=== PATIENT | male | born 1945 | race Caucasian/White ===

== ENCOUNTER 2017-01-21 07:45 | Day surgery (SDC) | payer OTHER ==
[~2017-01-21] VITALS: Ht 180.3 cm; Wt 143.0 kg
[~2017-01-21 07:45] MED LIST: AMARYL1 MG PO; ASPIR 8181 M1 PO; CYMBALTA60 MG PO; DIOVAN320 MG PO; FISH OIL 1,0001 EAC7 PO; FLUTICASONE P15.8 ML BOTH NARES; GLIMEPIRIDE2 MG PO; HYDROCHLOROTHIA25 MG PO; HYDROCODON-ACE1 EAC7 PO; HYDROXYZINE HCL25 MG PO; IRON325 M1 PO; LIPITOR20 MG PO; LORTAB 5-325 M1 EACH PO; METFORMIN HCL500 MG PO; METOPROLOL TART25 MG PO; MULTIVITAMIN1 EAC2 PO; NEURONTIN300 MG PO; NORVASC10 MG PO; PROAIR HFA8.5 GM IH; SINGULAIR10 MG PO; SYMBICORT60 INHALA1 IH; VITAMIN B-122000 MC1 PO
[2017-01-21 08:25] LABS: POINT-OF-CARE METER ID UU14174212
[2017-01-21 08:45] VITALS: BP 146/68
[2017-01-21 13:04] LABS: POINT-OF-CARE METER ID UU13113675
[2017-01-21 13:59] VITALS: BP 126/73
[2017-01-21 14:54] VITALS: BP 122/69
[2017-01-21 15:24] VITALS: BP 122/69
[2017-01-21 16:46] VITALS: BP 135/75
== END 2017-01-21 16:55 | disposition home or self-care (01) ==
LOC: SDC 07:45
PROVIDERS: Neurological Surgery
PROC: 00NY0ZZ Release Lumbar Spinal Cord, Open Approach (ICD-10-PCS; principal; 2017-01-21)
DX: M48.06 Spinal stenosis, lumbar region (principal); M54.16 Radiculopathy, lumbar region; Z98.1 Arthrodesis status; R29.898 Other symptoms and signs involving the musculoskeletal system; E11.42 Type 2 diabetes mellitus with diabetic polyneuropathy; I10 Essential (primary) hypertension; Z87.891 Personal history of nicotine dependence; Z79.84 Long term (current) use of oral hypoglycemic drugs; Z79.82 Long term (current) use of aspirin; E66.9 Obesity, unspecified; Z68.42 Body mass index [BMI] 45.0-49.9, adult
CPT/HCPCS: 72020; 76000; 82948; J0330; J0461; J1170; J1885; J2250; J2405; J2710; J3010; J3370